=== PATIENT | female | born 1970 | race Two or more races ===

== ENCOUNTER → 2017-09-19 | Emergency (ER) | payer OTHER ==
[~2017-09-19] VITALS: Ht 167.6 cm; Wt 122.5 kg
[~2017-09-19] MED LIST: ACTOS30 MG PO; AMARYL 4 MG PO; AVANDAMET 2 MG/1 TA1; AVANDARYL 4 MG-1 TA2 PO; Cozaar PO; HUMALOG100 UNIT/1; LANTUS100 U/ML; LANTUS100 U/ML SQ; Lantus 1000 U/10 ML SUBCUTANEO; PEPCID IV; Septra PO
== END | disposition home or self-care (01) ==
LOC: ER 08:27
DX: K52.89 Other specified noninfective gastroenteritis and colitis (principal)

== ENCOUNTER 2017-11-11 09:21 | Emergency (ER) | payer OTHER ==
[~2017-11-11] VITALS: Ht 167.6 cm; Wt 117.9 kg
[2017-11-11] MEDS ORDERED: NORFLEX100MG PO (11:08)
[2017-11-11] MEDS ORDERED: KETO10TA2 PO (11:08)
== END 2017-11-11 12:04 | disposition home or self-care (01) ==
LOC: ER 09:21
DX: M25.511 Pain in right shoulder (principal)

== ENCOUNTER 2018-05-09 09:04 | Outpatient (CLI) | payer OTHER ==
[~2018-05-09 09:04] MED LIST changes: +KETO10TA2 PO; +NORFLEX100MG PO
== END 2018-05-09 09:17 | disposition home or self-care (01) ==
LOC: NUCLEAR 09:04
DX: I87.2 Venous insufficiency (chronic) (peripheral) (principal); I10 Essential (primary) hypertension; E03.8 Other specified hypothyroidism; E66.8 Other obesity; E11.51 Type 2 diabetes mellitus with diabetic peripheral angiopathy without gangrene; E11.9 Type 2 diabetes mellitus without complications; G62.89 Other specified polyneuropathies; K21.9 Gastro-esophageal reflux disease without esophagitis; E11.42 Type 2 diabetes mellitus with diabetic polyneuropathy; Z79.4 Long term (current) use of insulin; I73.9 Peripheral vascular disease, unspecified; R60.0 Localized edema

== ENCOUNTER 2018-05-15 09:32 | Outpatient (CLI) | payer OTHER | END 2018-05-15 10:01 | disposition home or self-care (01) | LOC: NUCLEAR 09:32 | DX: I73.9 Peripheral vascular disease, unspecified (principal); I10 Essential (primary) hypertension; E03.8 Other specified hypothyroidism; E66.8 Other obesity; E11.51 Type 2 diabetes mellitus with diabetic peripheral angiopathy without gangrene; G62.89 Other specified polyneuropathies; K21.9 Gastro-esophageal reflux disease without esophagitis; E11.42 Type 2 diabetes mellitus with diabetic polyneuropathy; Z79.4 Long term (current) use of insulin ==

== ENCOUNTER 2018-09-12 07:47 | Emergency (ER) | payer OTHER ==
[~2018-09-12] VITALS: Ht 167.6 cm; Wt 117.9 kg
[2018-09-12] MEDS ORDERED: TOPROL XL50 MG PO (07:56)
[2018-09-12] MEDS ORDERED: TRULICITY0.75 MG/0. SUBCUTANEO (07:57)
[2018-09-12] MEDS ORDERED: FARXIGA5 MG PO (07:57)
[2018-09-12] MEDS ORDERED: NEURONTIN600 MG PO (07:57)
[2018-09-12] MEDS ORDERED: LIPITOR40 MG PO (07:57)
[2018-09-12] MEDS ORDERED: VASOFLEX TABLE1 EACH PO (07:58)
[2018-09-12] MEDS ORDERED: ASPIR 8181 MG PO (07:58)
== END 2018-09-12 17:36 | disposition home or self-care (01) ==
LOC: ER 07:47
DX: K52.9 Noninfective gastroenteritis and colitis, unspecified (principal)

== ENCOUNTER 2019-08-04 14:17 | Emergency (ER) | payer OTHER ==
[~2019-08-04] VITALS: Ht 167.6 cm; Wt 116.6 kg
[~2019-08-04 14:17] MED LIST changes: +ASPIR 8181 MG PO; +FARXIGA5 MG PO; +LIPITOR40 MG PO; +NEURONTIN600 MG PO; +TOPROL XL50 MG PO; +TRULICITY0.75 MG/0. SUBCUTANEO; +VASOFLEX TABLE1 EACH PO
[2019-08-04] MEDS ORDERED: JARDIANCE25 MG (14:48)
[2019-08-04] MEDS ORDERED: VITAMIN D35000 UNI2 (14:49)
[2019-08-04] MEDS ORDERED: TORSEMIDE10 MG (14:49)
== END 2019-08-04 18:47 | disposition home or self-care (01) ==
LOC: ER 14:17
DX: R21 Rash and other nonspecific skin eruption (principal)

== ENCOUNTER 2019-08-28 12:07 | Emergency (ER) | payer OTHER ==
[~2019-08-28] VITALS: Ht 167.6 cm; Wt 115.7 kg
[~2019-08-28 12:07] MED LIST changes: +JARDIANCE25 MG; +TORSEMIDE10 MG; +VITAMIN D35000 UNI2
[2019-08-28] MEDS ORDERED: ZITHROMAX500 MG PO (14:40)
[2019-08-28] MEDS ORDERED: DOLOGEN CAPLET1 EACH PO (14:40)
[2019-08-28] MEDS ORDERED: TUSNEL DIABETI118 ML PO (14:40)
== END 2019-08-28 14:50 | disposition home or self-care (01) ==
LOC: ER 12:07
DX: E11.65 Type 2 diabetes mellitus with hyperglycemia (principal); J06.9 Acute upper respiratory infection, unspecified

== ENCOUNTER 2020-01-10 17:30 | Inpatient (IN) | payer OTHER ==
[~2020-01-10] VITALS: Ht 167.6 cm; Wt 113.4 kg
[~2020-01-10 17:30] MED LIST changes: +DOLOGEN CAPLET1 EACH PO; +TUSNEL DIABETI118 ML PO; +ZITHROMAX500 MG PO
[2020-01-10] MEDS ORDERED: LANTUS SOL100 UNIT/1 (17:55)
[2020-01-10] MEDS ORDERED: COZAAR50 MG (17:55)
== END 2020-01-20 09:35 | disposition expired | DRG 208 ==
LOC: ER 17:30 → MEDJ 21:22 → ICU 01-15 06:26
PROVIDERS: ADMIT Internal Medicine; ATTEND Internal Medicine
PROC: 8E0ZXY6 Isolation (ICD-10-PCS; 2020-01-10)
PROC: BB24ZZZ Computerized Tomography (CT Scan) of Bilateral Lungs (ICD-10-PCS; 2020-01-10)
PROC: 3E0F7GC Introduction of Other Therapeutic Substance into Respiratory Tract, Via Natural or Artificial Opening (ICD-10-PCS; 2020-01-10)
PROC: 02HV33Z Insertion of Infusion Device into Superior Vena Cava, Percutaneous Approach (ICD-10-PCS; 2020-01-13)
PROC: 5A1945Z Respiratory Ventilation, 24-96 Consecutive Hours (ICD-10-PCS; principal; 2020-01-14)
PROC: 0BH17EZ Insertion of Endotracheal Airway into Trachea, Via Natural or Artificial Opening (ICD-10-PCS; 2020-01-14)
PROC: 0T9B70Z Drainage of Bladder with Drainage Device, Via Natural or Artificial Opening (ICD-10-PCS; 2020-01-14)
PROC: 4A12X4Z Monitoring of Cardiac Electrical Activity, External Approach (ICD-10-PCS; 2020-01-14)
PROC: 0DH67UZ Insertion of Feeding Device into Stomach, Via Natural or Artificial Opening (ICD-10-PCS; 2020-01-15)
PROC: 3E0G76Z Introduction of Nutritional Substance into Upper GI, Via Natural or Artificial Opening (ICD-10-PCS; 2020-01-15)
PROC: 4A033R1 Measurement of Arterial Saturation, Peripheral, Percutaneous Approach (ICD-10-PCS; 2020-01-17)
DX: U07.1 COVID-19 (principal); J15.7 Pneumonia due to Mycoplasma pneumoniae; J96.01 Acute respiratory failure with hypoxia; R65.11 Systemic inflammatory response syndrome (SIRS) of non-infectious origin with acute organ dysfunction; G93.41 Metabolic encephalopathy; B37.1 Pulmonary candidiasis; I46.9 Cardiac arrest, cause unspecified; N17.9 Acute kidney failure, unspecified; E87.2 Acidosis; J93.83 Other pneumothorax; R31.29 Other microscopic hematuria; E11.65 Type 2 diabetes mellitus with hyperglycemia; I10 Essential (primary) hypertension; R07.89 Other chest pain; J02.8 Acute pharyngitis due to other specified organisms; Z66 Do not resuscitate; Z20.828 Contact with and (suspected) exposure to other viral communicable diseases; Z79.4 Long term (current) use of insulin